=== PATIENT | female | born 1965 | race Caucasian/White ===

== ENCOUNTER → 2017-05-07 | Outpatient (CLI) | payer BC ==
[2014-11-21 15:52] VITALS: BP 158/92
[~2017-05-07] MED LIST: DIAZ5TAB PO; MECL25TA3 PO
--- NOTE | 2017-05-10 11:55 | RAD ---
DATE: May 07, 2017 EXAM: MAMMO WESLY SCREENING BILATERAL HISTORY: Screening study. COMPARISON: August 01, 2015 3-D mammographic tomogram and 2-D mammogram dated June 12, 2014 This study was interpreted with the benefit of Computerized Aided Detection (CAD). FINDINGS: The breast parenchyma is replaced with adipose tissue. Again seen is a nodule within the inferior medial aspect of the right breast anteriorly which is stable. There are no dominant suspicious masses, suspicious microcalcifications or evidence of architectural distortion. IMPRESSION: No mammographic indicators for malignancy. BI-RADS CATEGORY: 2 BENIGN FINDING RECOMMENDED FOLLOW-UP: 12M 12 MONTH FOLLOW-UP PQRS compliance statement: Patient information was entered into a reminder system with a target due date May 08, 2018 for the next mammogram. Mammography is a sensitive method for finding small breast cancers, but it does not detect them all and is not a substitute for careful clinical examination. A negative mammogram does not negate a clinically suspicious finding and should not result in delay in biopsying a clinically suspicious abnormality. "Our facility is accredited by the [employer] Mammography [employer]." The patient's breast density may affect the ability of mammography to detect breast cancer. There are 4 categories of breast density, A, B, C and D. Breast density A means that most of the breast tissue is replaced with adipose tissue and therefore is not dense. Breast density B means that the breast tissue is mildly dense and scattered. Breast density C means that the breast tissue is heterogeneously dense. Breast density D means that the breast tissue is very dense. Breast densities especially C and D may decrease the sensitivity of mammography to detect breast cancer. Therefore, the patient may benefit from 3-D breast mammography (3D breast tomography) as a part of their screening mammogram. Insurance may or may not pay for this additional imaging. The patient's breast density based on today's mammogram is category A.
== END | disposition home or self-care (01) ==
LOC: MAMMO 15:14
PROVIDERS: ATTEND Family Medicine
DX: Z12.31 Encounter for screening mammogram for malignant neoplasm of breast (principal)
CPT/HCPCS: 77063; 77067

== ENCOUNTER → 2017-09-16 | Outpatient (CLI) | payer BC ==
[2014-11-21 15:52] VITALS: BP 158/92
[~2017-09-16] MED LIST changes: +IOHEXOL 300 MG/ML 75 ML VIAL. IV ONE
--- NOTE | 2017-09-16 14:18 | RAD ---
CTA of the chest. 09/16/2017 Indication: [Recent surgery. Shortness of breath. Cough. Pneumonia.] Comparison study: [None] Technique: Multidetector CT imaging of the chest was performed following the administration of intravenous contrast. Multiple reconstructions including 3-D maximum intensity projection reconstructions were created on an independent workstation and reviewed. Findings: Heart size is top normal. No pericardial effusion is identified. Thoracic aorta is grossly normal in course and contour. Multiple small mediastinal and bilateral hilar lymph nodes are noted. Individually these nodes are not pathologically enlarged by size criterion are mildly prominent in regards to number. No focal infiltrate or pneumonia is identified. No pneumothorax or pleural effusion is seen. Minimal areas of subsegmental atelectasis are seen scattered throughout the lungs. There is a 4 mm noncalcified nodule right middle lobe (axial image 73). Postsurgical changes noted in the stomach. Limited view of the upper abdomen demonstrates no acute amounts. No acute osseous changes are seen. IMPRESSION: 1. No evidence of acute pulmonary embolus or other acute cardiopulmonary process 2. 4 mm noncalcified nodule, right middle lobe. Recommend stratification based on risk factors and CT surveillance is described below. Pulmonary Nodule Followup: Fleischner Society recommendations (Radiology 2005; 237; 395-400): In a low risk patient: 4mm or less - No follow up required. >4-6mm- 12 month follow up, if unchanged, no further follow up. >6-8mm- 6-12 month follow up, then at 18-24 months if no change. >8mm- 3, 9, 24 month follow up or consideration of PET/CT. In a high risk patient: <4mm - 12 month follow up, if unchanged then no further follow up. >4-6mm- 6-12 month follow up, then at 18-24 months if no change. >6-8mm- 3-6 month follow up, then at 9-12 months and [address] DOSING PQRS STATEMENT: One or more of the following individualized dose reduction techniques were utilized for this examination: 1. Automated exposure control 2. Adjustment of the mA and/or kV according to patient size 3. Use of iterative reconstruction technique Electronically signed by: Marcus Calero MD (09/16/2017 2:15 PM) [id number]
== END | disposition home or self-care (01) ==
LOC: CT 10:12
PROVIDERS: ATTEND Family Medicine
DX: J18.9 Pneumonia, unspecified organism (principal)
CPT/HCPCS: 71275; Q9967

== ENCOUNTER → 2018-02-14 | Outpatient (CLI) | payer BC ==
[2014-11-21 15:52] VITALS: BP 158/92
[~2018-02-14] MED LIST changes: -IOHEXOL 300 MG/ML 75 ML VIAL. IV ONE
--- NOTE | 2018-02-14 15:06 | RAD ---
2 view study of both hips and AP view of the pelvis Clinical indications: Bilateral hip pain. FINDINGS: There is mild asymmetric joint space narrowing of the right hip joint. There is minimal degenerative spurring of the right femoral head. Mild subchondral sclerosis of the right hip joint is seen. There is minimal spurring of the left femoral head. No significant joint space narrowing is evident on this side. No acute fracture or dislocation or osteolytic process or diastases is evident. 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 Electronically signed by: Chirag Briceño MD (02/14/2018 3:02 PM) [id number]
== END | disposition home or self-care (01) ==
LOC: RAD 14:36
PROVIDERS: ATTEND Physician Assistant
DX: M16.0 Bilateral primary osteoarthritis of hip (principal)
CPT/HCPCS: 73521

== ENCOUNTER → 2018-05-20 | Outpatient (CLI) | payer BC ==
[2014-11-21 15:52] VITALS: BP 158/92
--- NOTE | 2018-05-25 08:14 | RAD ---
DATE: 05/20/2018 5:00 PM EXAM: MAMMO WESLY SCREENING BILATERAL HISTORY: routine screening evaluation. COMPARISON: Prior mammographic imaging dating back to 06/12/2014 Bilateral CC and MLO views of the breasts were performed. Bilateral breast tomosynthesis was performed in CC and MLO projections. This study was interpreted with the benefit of Computerized Aided Detection (CAD ). Breast Density: The breast parenchyma is primarily fatty replaced. Breast parenchyma level density A. FINDINGS: Benign calcifications are present. The parenchymal pattern appears stable. No suspicious masses, microcalcifications or architectural distortion is present to suggest malignancy in either breast. The visualized axillae are unremarkable. IMPRESSION: No mammographic evidence of malignancy. BI-RADS CATEGORY: 2 BENIGN FINDING(S) RECOMMENDED FOLLOW-UP: 12M 12 MONTH FOLLOW-UP Annual screening mammography is recommended, unless clinically indicated sooner based on symptoms or change in physical exam. PQRS compliance statement: Patient information was entered into a reminder system with a target due date 05/22/2019 for the next mammogram. Mammography is a sensitive method for finding small breast cancers, but it does not detect them all and is not a substitute for careful clinical examination. A negative mammogram does not negate a clinically suspicious finding and should not result in delay in biopsying a clinically suspicious abnormality. "Our facility is accredited by the [employer] Mammography Program." FREDERICKD
== END | disposition home or self-care (01) ==
LOC: MAMMO 14:49
PROVIDERS: ATTEND Physician Assistant
DX: Z12.31 Encounter for screening mammogram for malignant neoplasm of breast (principal)
CPT/HCPCS: 77063; 77067

== ENCOUNTER → 2019-12-01 | Outpatient (CLI) | payer BC ==
[2014-11-21 15:52] VITALS: BP 158/92
[~2019-12-01] MED LIST changes: +MECL-75 PO; -MECL25TA3 PO
--- NOTE | 2019-12-01 17:51 | RAD ---
DATE: 12/01/2019 1:10 PM EXAM: MAMMO WESLY SCREENING BILATERAL HISTORY: Screening COMPARISON: 05/20/2018, 05/07/2017 Bilateral CC and MLO views of the breasts were performed. Bilateral breast tomosynthesis was performed in CC and MLO projections. This study was interpreted with the benefit of Computerized Aided Detection (CAD). FINDINGS: Breast Density: FATTY The Breast Parenchyma is primarily fatty replaced. Breast parenchyma level density A. No suspicious masses, microcalcifications or architectural distortion is present to suggest malignancy in either breast. The visualized axillae are unremarkable. IMPRESSION: No mammographic evidence of malignancy. BI-RADS CATEGORY: 1 NEGATIVE RECOMMENDED FOLLOW-UP: 12M 12 MONTH FOLLOW-UP Annual screening mammography is recommended, unless clinically indicated sooner based on symptoms or change in physical exam. PQRS compliance statement: Patient information was entered into a reminder system with a target due date for the next mammogram. Mammography is a sensitive method for finding small breast cancers, but it does not detect them all and is not a substitute for careful clinical examination. A negative mammogram does not negate a clinically suspicious finding and should not result in delay in biopsying a clinically suspicious abnormality. "Our facility is accredited by the [employer] Mammography [employer]."
== END | disposition home or self-care (01) ==
LOC: MAMMO 13:12
PROVIDERS: ATTEND Physician Assistant
DX: Z12.31 Encounter for screening mammogram for malignant neoplasm of breast (principal)
CPT/HCPCS: 77063; 77067

== ENCOUNTER → 2020-02-01 | Outpatient (CLI) | payer BC ==
[2014-11-21 15:52] VITALS: BP 158/92
--- NOTE | 2020-02-01 14:28 | RAD ---
EXAMINATION: HIP BILATERAL WITH PELVIS CLINICAL HISTORY: Bilateral hip pain, worse on the right TECHNIQUE: HIP BILATERAL WITH PELVIS Number of Images/Views: 3 each COMPARISON: 02/14/2018 FINDINGS: Axial joint space narrowing, [id number] on the right and mild on the left, with small marginal osteophytes in the bilateral hips, similar to prior study. Pubic symphysis and SI joints maintained. Partially visualized lumbar degenerative changes. No acute fracture. IMPRESSION: Mild to moderate degenerative changes bilateral hips, greater on the right. Electronically signed by: Darryl Jackson DO (02/01/2020 2:26 PM) [id number]
== END ==
LOC: DXRAD 09:37
PROVIDERS: ATTEND Physician Assistant
DX: M16.0 Bilateral primary osteoarthritis of hip (principal); M47.816 Spondylosis without myelopathy or radiculopathy, lumbar region; M25.752 Osteophyte, left hip; M25.751 Osteophyte, right hip
CPT/HCPCS: 73521

== ENCOUNTER → 2020-12-02 | Outpatient (CLI) | payer BC ==
[2014-11-21 15:52] VITALS: BP 158/92
--- NOTE | 2020-12-02 11:13 | RAD ---
EXAM: Bilateral digital screening mammogram with tomosynthesis. HISTORY: 55-year-old female presents for screening mammography. TECHNIQUE: Full-field digital craniocaudal and mediolateral oblique 2D and 3D tomosynthesis images of both breasts are obtained for evaluation. Computer aided detection was applied. COMPARISON: 12/01/2019, 05/07/2017, 08/01/2015 BREAST PARENCHYMAL DENSITY: Level A - Mostly fat. FINDINGS: There is no new suspicious mass, microcalcification or region of architectural distortion. There is stable asymmetry within the posterior 9:00 position of the right breast, allowing for differ ences in imaging technique and patient positioning. There is also stable asymmetry within the superio r slightly medial aspect of the left breast at anterior to mid depth compared to prior studies. There are a few benign calcifications. IMPRESSION: BI-RADS Category 2: Benign finding(s). RECOMMENDATION: Annual mammography is recommended. If your mammogram demonstrates that you have dense breast tissue, which could hide abnormalities, and if you have other risk factors for breast cancer that have been identified, you might benefit from s upplemental screening tests that may be suggested by your ordering physician. Dense breast tissue, i n and of itself, is a relatively common condition. This information is not provided to cause undue c oncern, but rather to raise your awareness and to promote discussion with your physician regarding th e presence of other risk factors, in addition to dense breast tissue. A report of your mammography re sults will be sent to you and your physician. You should contact your physician if you have any ques tions or concerns regarding this report. Mammography is a sensitive method for finding small breast cancers, but it does not detect them all a nd is not a substitute for careful clinical examination. A negative mammogram does not negate a clin ically suspicious finding and should not result in delay in biopsying a clinically suspicious abnorma lity. PQRS compliance statement - Patient information was entered into a reminder system with a target due date for the next mammogram. "Our facility is accredited by the [employer] Mammography [employer]." Electronically signed by: Elizabeth Powell MD (12/02/2020 11:11 AM) [id number]
== END ==
LOC: MAMMO 10:06
PROVIDERS: ATTEND Physician Assistant
DX: Z12.31 Encounter for screening mammogram for malignant neoplasm of breast (principal)
CPT/HCPCS: 77063; 77067